=== PATIENT | male | born 1940 | race Caucasian/White ===

== ENCOUNTER 2018-06-04 21:38 | Emergency (ER) | payer MEDICARE ==
[2018-06-04 21:41] VITALS: BP 136/72
[2018-06-04] MEDS ORDERED: OLAN5TAB26 PO (21:55)
--- NOTE | 2018-06-04 21:56 | ER Report ---
History and Physical Time Seen By MD: 02:41 Hx. of Stated Complaint: Daughter and called EMS from hotel due to patient becoming violent. Stated they weren't able to handle his behaviors. Family states patient has been in and out of nursing homes seeking help HPI/ROS CHIEF COMPLAINT: Dementia, agitation HISTORY OF PRESENT ILLNESS: 77-year-old male with extensive history of dementia was traveling back from [place] where he was attending appointments for his . He is from [place], [place]. They stopped in a hotel tonight. The patient became agitated and aggressive with his daughter. He was grabbing and twisting arms. He was knocking on other doors in the hotel room because he is disoriented. He is likely sundowning. Patient denies any recent illness. He has no complaints. He is calm down now that EMSs brought him in for evaluation. His daughter notes no onset of recent illness. Patient has been to the [facility] dementia evaluation unit. He has been kicked out of an assisted care for aggressive behavior. Daughter expresses frustration that there are no facilities in the immediate area for him to be cared for in. REVIEW OF SYSTEMS: Respiratory: No cough, no dyspnea. Cardiovascular: No chest pain, no palpitations. Gastrointestinal: No vomiting, no abdominal pain. Musculoskeletal: No back pain. Allergies: Coded Allergies: propoxyphene (Verified Allergy, Mild, Confusion, agitation , 06/04/18) Home Meds Active Scripts Olanzapine (ZYPREXA ZYDIS) 5 Mg Tab.rapdis, 1-2 MG PO QDAY PRN for agitation, #30 Prov:KAYLA CARBAJAL DO 06/04/18 Reported Medications Timolol (BETIMOL) 5 Ml Drops, 5 ML OS DAILY 06/04/18 Latanoprost/Pf (Latanoprost 0.005% Eye Drop) 0.005 % Drops, OU DAILY 06/04/18 Allopurinol (ZYLOPRIM) 300 Mg Tablet, 300 MG PO QDAY, TAB 06/04/18 Lisinopril (LISINOPRIL) 20 Mg Tablet, 20 MG PO HS, TAB 06/04/18 Apixaban (Eliquis) 5 Mg (74 Tabs) Tab.ds.pk, 5 MG PO BID 06/04/18 Donepezil Hcl (DONEPEZIL HCL) 10 Mg Tablet, 10 MG PO QDAY, TAB 06/04/18 Past Medical/Surgical History Atrial fibrillation. On pelvic was, lisinopril for high blood pressure Reviewed Nurses Notes: Yes Old Medical Records Reviewed: Yes Constitutional Vital Sign - Last 24 Hours 06/04/18 21:41 Temp 98.0 Pulse 59 Resp 15 B/P (MAP) 136/72 Pulse Ox 90 O2 Delivery Room Air Physical Exam Vital signs stable, afebrile, pulse ox normal General Appearance: The patient is alert, has no immediate need for airway protection and no current signs of toxicity. Quiet, cooperative, pleasant, obvious dementia HEENT: Pupils equal and round no injection. TMs normal, oropharynx without redness or exudate Respiratory: Chest is non tender, lungs are clear to auscultation. No chest wall tenderness Cardiac: regular rate and rhythm Gastrointestinal: Abdomen is soft and non tender, no masses, bowel sounds normal. Musculoskeletal: Neck: Neck is supple and non tender. Extremities have full range of motion and are non tender. Skin: No rashes or lesions. DIFFERENTIAL DIAGNOSIS: After history and physical exam differential diagnosis was considered for weakness including but not limited to electrolyte abnormality, depression, anxiety, CVA, spinal cord abnormality, dementia, agitation and infectious causes. Medical Decision Making ED Course/Re-evaluation ED Course Patient was admitted to an examination room. H&P was done. The differential diagnoses was considered. On clinical examination. Patient has no findings. His vital signs are stable. He is calm and cooperative. He does exhibit dementia. I had a prolonged discussion with his daughter. She would like some medication to calm him down. If he accepts again. Prescription for Zyprexa 5 mg Repetabs was provided. Decision to Disposition Date: Jun 04, 2018 Decision to Disposition Time: 21:53 Depart Departure Latest Vital Signs Vital Signs Date Time Temp Pulse Resp B/P (MAP) Pulse Ox O2 Delivery O2 Flow Rate FiO2 06/04/18 21:41 98.0 59 15 136/72 90 Room Air Impression: Primary Impression: Dementia Additional Impressions: Atrial fibrillation Hypertension Condition: Improved Disposition: HOME OR SELF-CARE Referrals: JOANN DANIELLE MD New Scripts Olanzapine (ZYPREXA ZYDIS) 5 Mg Tab.rapdis 1-2 MG PO QDAY PRN for agitation, #30 Prov: KAYLA CARBAJAL DO 06/04/18 Patient Instructions: Dementia (ED) Additional Instructions: Use Zyprexa rapidly dissolving tablets as needed for agitation control Problem Qualifiers Primary Impression: Dementia Dementia type: Alzheimer's disease Alzheimer's disease onset: unspecified onset Dementia behavioral disturbance: with behavioral disturbance Qualified Codes: G30.9 - Alzheimer's disease, unspecified; F02.81 - Dementia in other diseases classified elsewhere with behavioral disturbance Additional Impressions: Atrial fibrillation Atrial fibrillation type: chronic Qualified Codes: I48.2 - Chronic atrial fibrillation Hypertension Hypertension type: essential hypertension Qualified Codes: I10 - Essential (primary) hypertension KAYLA CARBAJAL DO Jun 04, 2018 21:56
[2018-06-04] MEDS ORDERED: OLANZapine ZYDIS ODT 5MG TABDP PO ONE (22:00)
[2018-06-04] MEDS ORDERED: DONE10TA38 PO (22:24)
[2018-06-04] MEDS ORDERED: APIX5TAB4 PO (22:24)
[2018-06-04] MEDS ORDERED: TIMO5DRO3 OS (22:24)
[2018-06-04] MEDS ORDERED: LATA7.5D OU (22:24)
[2018-06-04] MEDS ORDERED: LISI20TA29 PO (22:24)
[2018-06-04] MEDS ORDERED: ALLO-119 PO (22:24)
== END 2018-06-04 22:15 | disposition home or self-care (01) ==
LOC: EDBD 21:54 → ER 21:54
DX: F02.81 Dementia in other diseases classified elsewhere, unspecified severity, with behavioral disturbance (principal); I48.2 Chronic atrial fibrillation; I10 Essential (primary) hypertension
CPT/HCPCS: 99283; A9270

== ENCOUNTER → 2018-06-04 | Outpatient (CLI) | payer MEDICARE ==
[~2018-06-04] MED LIST: ALLO-119 PO; APIX5TAB4 PO; DONE10TA38 PO; LATA7.5D OU; LISI20TA29 PO; OLAN5TAB26 PO; TIMO5DRO3 OS
== END ==
LOC: AMB 21:11
PROVIDERS: ATTEND Nurse Practitioner
DX: F03.91 Unspecified dementia, unspecified severity, with behavioral disturbance (principal); R45.1 Restlessness and agitation; R41.82 Altered mental status, unspecified
CPT/HCPCS: A0425; A0429